=== PATIENT | male | born 1965 | race Caucasian/White ===

== ENCOUNTER 2018-11-29 11:05 | Inpatient (IN) | payer OTHER ==
--- NOTE | 2018-11-29 11:28 | ER Document Report ---
ED Medical Screen (RME) - General Chief Complaint: Abnormal Lab Results Stated Complaint: ABNORMAL LABS Time Seen by Provider: 11/29/18 11:27 Notes: Patient has recently not been feeling well so he went to a local office where he had blood drawn yesterday. He got a call today saying that his thyroid was not functioning and that he had some other abnormal labs. Reviewing the lab core sheet shows the patient also has elevated CK-MB. Patient says he recently added 100 abdominal crunches a day to his workout regimen for the past week. Patient denies any nausea or vomiting. Never had a problem with his thyroid before. Has been told he has hypertension but not taking any medicines for it. TRAVEL OUTSIDE OF THE [place] IN LAST 30 DAYS: No - Related Data Allergies/Adverse Reactions: No Known Allergies Allergy (Unverified 11/29/18 11:07) Past Medical History Renal/ Medical History: Denies: Hx Peritoneal Dialysis Physical Exam - Vital signs Vitals: Temp Pulse Resp BP Pulse Ox 99.4 F 83 20 163/101 H 97 11/29/18 11:14 11/29/18 11:14 11/29/18 11:14 11/29/18 11:14 11/29/18 11:14 Course - Vital Signs Vital signs: Temp Pulse Resp BP Pulse Ox 99.4 F 83 20 163/101 H 97 11/29/18 11:14 11/29/18 11:14 11/29/18 11:14 11/29/18 11:14 11/29/18 11:14
[2018-11-29] MEDS ORDERED: NORMAL SALINE 1000 ML 1,000 ML IV ONE (11:29)
[2018-11-29 12:24] LABS: ABSOLUTE BASOPHILS # (AUTO) 0.1 10^3/uL (0.0-0.2); ABSOLUTE EOSINOPHILS # (AUTO) 0.2 10^3/uL (0.0-0.6); ABSOLUTE MONOCYTES (AUTO) 0.3 10^3/uL (0.1-1.4); ABSOLUTE NEUT (AUTO) 3.7 10^3/uL (1.7-8.2); BASOPHILS % (AUTO) 2.2 % (0-2); HEMATOCRIT 36.5 % (37.9-51.0); HEMOGLOBIN 12.5 g/dL (13.5-17.0); LYMPHOCYTES % (AUTO) 31.6 % (13-45); MEAN CORPUSCULAR HEMOGLOBIN 32.1 pg (27.0-33.4); MEAN CORPUSCULAR HGB CONC 34.2 g/dL (32.0-36.0); MEAN CORPUSCULAR VOLUME 94 fl (80-97); MONOCYTES % (AUTO) 5.4 % (3-13); PLATELET COUNT 353 10^3/uL (150-450); RED BLOOD COUNT 3.88 10^6/uL (4.35-5.55); RED CELL DISTRIBUTION WIDTH 14.7 % (11.5-14.0); SEGMENTED NEUTROPHILS % (AUTO) 57.8 % (42-78); TOTAL CELLS COUNTED % (AUTO) 100 %; WHITE BLOOD COUNT 6.4 10^3/uL (4.0-10.5)
[2018-11-29 12:31] LABS: APPEARANCE,URINE CLEAR; BILIRUBIN,URINE NEGATIVE (NEGATIVE); COLOR,URINE YELLOW; GLUCOSE, URINE NEGATIVE (NEGATIVE); KETONES,URINE NEGATIVE (NEGATIVE); LEUKOCYTE ESTERASE,URINE NEGATIVE (NEGATIVE); NITRITE,URINE NEGATIVE (NEGATIVE); PROTEIN,URINE NEGATIVE (NEGATIVE); URINE SPECIFIC GRAVITY 1.021; UROBILINOGEN,URINE NEGATIVE mg/dL (<2.0)
[2018-11-29 12:48] LABS: ALANINE AMINOTRANSFERASE 43 U/L (21-72); ALBUMIN 5.4 g/dL (3.5-5.0); ALKALINE PHOSPHATASE 61 U/L (38-126); ANION GAP 13 (5-19); ASPARTATE AMINO TRANSFERASE 90 U/L (17-59); BILIRUBIN,DIRECT 0.2 mg/dL (0.0-0.4); BILIRUBIN,TOTAL 0.5 mg/dL (0.2-1.3); BLOOD UREA NITROGEN 18 mg/dL (7-20); CALCIUM 9.9 mg/dL (8.4-10.2); CARBON DIOXIDE 28 mmol/L (22-30); CHLORIDE 100 mmol/L (98-107); GLUCOSE 87 mg/dL (75-110); LIPASE 191.6 U/L (23-300); POTASSIUM 4.1 mmol/L (3.6-5.0); SODIUM 141.2 mmol/L (137-145); TOTAL PROTEIN 8.6 g/dL (6.3-8.2)
[2018-11-29 12:59] LABS: CREATINE KINASE 3050 U/L (55-170)
[2018-11-29 13:00] LABS: TROPONIN I < 0.012 ng/mL
--- NOTE | 2018-11-29 17:18 | ER Document Report ---
ED General - General Chief Complaint: Abnormal Lab Results Stated Complaint: ABNORMAL LABS Time Seen by Provider: 11/29/18 11:27 Notes: 52-year-old male with no past medical history presents to the emergency department for abnormal labs after being sent over from doctor's office today. He states he was in his usual state of health yesterday and suddenly developed blurred vision/dizziness/nausea and cold sweats while eating lunch. He went to the nurse's station where he was told his blood pressure was markedly elevated so they did labs. Chest x-ray was done urinalysis was done normal. Patient was at work today when he received a call from his that the doctor's office called he had abnormal labs they told him to go to the emergency department. Of note, he said he had a brief episode of chest pain about 2.5 weeks ago. Patient denies fever, chills, headache, current vision changes, lightheaded or dizziness at this time, shortness of breath or chest pain, abdominal pain, urinary symptoms. TRAVEL OUTSIDE OF THE [place] IN LAST 30 DAYS: No - Related Data Allergies/Adverse Reactions: No Known Allergies Allergy (Unverified 11/29/18 11:07) Past Medical History - Social History Smoking Status: Unknown if Ever Smoked Family History: None Patient has suicidal ideation: No Patient has homicidal ideation: No Renal/ Medical History: Denies: Hx Peritoneal Dialysis Review of Systems - Review of Systems Constitutional: See HPI EENT: See HPI Cardiovascular: See HPI Respiratory: See HPI Gastrointestinal: See HPI Genitourinary: See HPI Male Genitourinary: No symptoms reported Musculoskeletal: No symptoms reported Skin: No symptoms reported Hematologic/Lymphatic: No symptoms reported Neurological/Psychological: No symptoms reported Physical Exam - Vital signs Vitals: Temp Pulse Resp BP Pulse Ox 99.4 F 83 20 163/101 H 97 11/29/18 11:14 11/29/18 11:14 11/29/18 11:14 11/29/18 11:14 11/29/18 11:14 - Notes Notes: PHYSICAL EXAMINATION: Reviewed vital signs and charting by RN GENERAL: Alert, interacts well. No acute distress. HEAD: Normocephalic, atraumatic. EYES: Pupils equal, round. Extraocular movements intact. ENT: Oral mucosa moist, tongue midline. NECK: Full range of motion. Trachea midline. LUNGS: Clear to auscultation bilaterally, no wheezes, rales, or rhonchi. No respiratory distress. HEART: Regular rate and rhythm. No murmur ABDOMEN: soft, non-tender. Non-distended. Bowel sounds present in all 4 quadrants. no McBurney's point tenderness, no Mcdaniels sign. EXTREMITIES: Moves all 4 extremities spontaneously. No edema, No cyanosis. NEUROLOGICAL: Alert and oriented x3. Normal speech. PSYCH: Normal affect, normal mood. SKIN: Warm, dry, normal turgor. No rashes or lesions noted. Course - Re-evaluation Re-evalutation: 11/29/18 17:18 Well-appearing 52-year-old male presents with abnormal labs. Outside labs from lab core and a TSH of 127.9, free T4 undetectable. Patient also with a CK of 3000. I called Dr. Chaparro, hospitalist to discuss patient for admission and requested a consultation. He is going to come and see the patient. Patient is otherwise alert and oriented in no distress. Physical exam was unremarkable. 11/29/18 17:34 11/29/18 18:55 Labs obtained here showed a CK of just over 3000, TSH and free T4 were added. Creatinine 1.32 but otherwise all labs were unremarkable. I spoke with Dr. Burroughs came and saw the patient and accepted the patient for observation. 11/29/18 18:56 - Vital Signs Vital signs: Temp Pulse Resp BP Pulse Ox 98.2 F 58 L 18 148/89 H 99 11/29/18 18:43 11/29/18 18:43 11/29/18 18:43 11/29/18 18:43 11/29/18 18:43 - Laboratory Result Diagrams: 11/29/18 11:52 11/29/18 11:52 Laboratory results interpreted by me: 11/29/18 11/29/18 11/29/18 11:52 11:52 11:52 RBC 3.88 L Hgb 12.5 L Hct 36.5 L RDW 14.7 H Basophils % 2.2 H Creatinine 1.31 H Est GFR (Non-Af Amer) 57 L AST 90 H Creatine Kinase 3050 H CK-MB (CK-2) 13.30 H Total Protein 8.6 H Albumin 5.4 H Urine Blood 11/29/18 11:52 RBC Hgb Hct RDW Basophils % Creatinine Est GFR (Non-Af Amer) AST Creatine Kinase CK-MB (CK-2) Total Protein Albumin Urine Blood SMALL H Discharge - Discharge Clinical Impression: Hypothyroidism Qualifiers: Hypothyroidism type: unspecified Qualified Code(s): E03.9 - Hypothyroidism, unspecified Hypertension Qualifiers: Hypertension type: essential hypertension Qualified Code(s): I10 - Essential (primary) hypertension Rhabdomyolysis Qualifiers: Rhabdomyolysis type: non-traumatic Qualified Code(s): M62.82 - Rhabdomyolysis Condition: Good Disposition: ADMITTED OBSERVATION Unit Admitted: Medical Floor
[2018-11-29] MEDS ORDERED: NORMAL SALINE 1000 ML 1,000 ML IV PRN (18:16)
--- NOTE | 2018-11-29 18:29 | PDOC H&P ---
History of Present Illness Patient complains of: nausea History of Present Illness: KHUSHBOO SCHUSTER is a 52 year old male with a PMH of hypertension and chronic smoking, not currently taking any medication who presented with nausea. Patient says he was apparently fine when he later developed nausea after eating pizza and felt like he was having mild blurring of vision. He says he also became very sweaty. He says he had very transient chest pain the other night but no recurrence so far. He denies SOB. Denies weakness, leg edema or confusion. He had some outpatient labs done earlier today which showed severely elevated TSH of 127 and severely T3 and undetectable T4. In the ER, he was also noted to have slightly elevated creatinine. He says his last known creatinine was normal but does not have a PCP and does not ff up with any physician. He was also noted to have elevated CK. Social History Smoking Status: Unknown if Ever Smoked Family History Parental Family History Reviewed: Yes - no premature CAD Children Family History Reviewed: No Sibling(s) Family History Reviewed.: No Medication/Allergy Home Medications: Multivitamin [Tab-A-Olga (Multiple Vitamin) Tablet] 1 tab PO DAILY 11/29/18 Aspirin [Ecotrin 81 mg EC Tablet] 81 mg PO DAILY #30 tabec 11/30/18 Levothyroxine Sodium [Synthroid] 125 mcg PO QAM #30 tablet 11/30/18 Losartan Potassium [Cozaar 50 mg Tablet] 50 mg PO DAILY #30 tablet 11/30/18 Allergies/Adverse Reactions: No Known Allergies Allergy (Unverified 11/29/18 11:07) Review of Systems All systems: reviewed and no additional remarkable complaints except as stated - as mentioned in HPI Physical Exam Vital Signs: Temp Pulse Resp BP Pulse Ox 99.4 F 83 20 163/101 H 97 11/29/18 11:14 11/29/18 11:14 11/29/18 11:14 11/29/18 11:14 11/29/18 11:14 Intake & Output 11/28/18 11/29/18 11/30/18 06:59 06:59 06:59 Weight 213 lb 6.519 oz Results Laboratory Results: 11/29/18 11:52 11/29/18 11:52 11/29/18 11/29/18 11/29/18 11:52 11:52 11:52 WBC 6.4 RBC 3.88 L Hgb 12.5 L Hct 36.5 L MCV 94 MCH 32.1 MCHC 34.2 RDW 14.7 H Plt Count 353 Seg Neutrophils % 57.8 Lymphocytes % 31.6 Monocytes % 5.4 Eosinophils % 3.0 Basophils % 2.2 H Absolute Neutrophils 3.7 Absolute Lymphocytes 2.0 Absolute Monocytes 0.3 Absolute Eosinophils 0.2 Absolute Basophils 0.1 Sodium 141.2 Potassium 4.1 Chloride 100 Carbon Dioxide 28 Anion Gap 13 BUN 18 Creatinine 1.31 H Est GFR ( Amer) > 60 Est GFR (Non-Af Amer) 57 L Glucose 87 Calcium 9.9 Total Bilirubin 0.5 AST 90 H ALT 43 Alkaline Phosphatase 61 Total Protein 8.6 H Albumin 5.4 H Lipase 191.6 Urine Color YELLOW Urine Appearance CLEAR Urine pH 6.0 Ur Specific [place] 1.021 Urine Protein NEGATIVE Urine Glucose (UA) NEGATIVE Urine Ketones NEGATIVE Urine Blood SMALL H Urine Nitrite NEGATIVE Ur Leukocyte Esterase NEGATIVE Urine WBC (Auto) 1 Urine RBC (Auto) 1 11/29/18 11/29/18 11:52 11:52 Creatine Kinase 3050 H CK-MB (CK-2) 13.30 H Troponin I < 0.012 Assessment & Plan - Diagnosis (1) Acute kidney injury Is this a current diagnosis for this admission?: Yes Plan: Creatinine mildly elevated at 1.3. No baseline Crea but he says his last known Cr was normal. He does have elevated CK. (2) Severe hypothyroidism Is this a current diagnosis for this admission?: Yes Plan: TSH is elevated at 126. T4 and T3 are severely low. He does not have any confusion or altered mentation. No concern for myxedema coma at this. He denies prior thyroid issues. Will start him on high dose oral synthroid. Will send for basic hypothyroid work-up. (3) Rhabdomyolysis Qualifiers: Rhabdomyolysis type: non-traumatic Qualified Code(s): M62.82 - Rhabdomyolysis Is this a current diagnosis for this admission?: Yes Plan: Start IV fluids. Repeat BMP and CK tomorrow. Possibly related to severe hypothyroidism. (4) Hypertension Qualifiers: Hypertension type: essential hypertension Qualified Code(s): I10 - Essential (primary) hypertension Is this a current diagnosis for this admission?: Yes Plan: Will start patient on losartan. Hydralazine prn. - Time Time Spent: 30 to 50 Minutes
[2018-11-29] MEDS ORDERED: HYDRALAZINE HCL INJ/PF 20 MG/1 ML SDV IV PRN (18:35)
[2018-11-29] MEDS: LEVOTHYROXINE SODIUM 0.112 MG TABLET PO SCH (19:25)
[2018-11-29] MEDS: LOSARTAN POTASSIUM 50 MG TABLET PO SCH (19:25)
[2018-11-29 19:48] LABS: FREE T4 (FREE THYROXINE) < 0.07 ng/dL (0.78-2.19)
--- NOTE | 2018-11-29 21:56 | EKG REPORT ---
SEVERITY:- ABNORMAL ECG - SINUS RHYTHM NONSPECIFIC T ABNORMALITIES, LATERAL LEADS : Confirmed by: Donna Scott 29-Nov-2018 21:55:28
[2018-11-30] MEDS: LEVOTHYROXINE SODIUM 0.112 MG TABLET PO SCH (05:26)
[2018-11-30 07:18] LABS: ANION GAP 7 (5-19); BLOOD UREA NITROGEN 18 mg/dL (7-20); CALCIUM 9.7 mg/dL (8.4-10.2); CARBON DIOXIDE 31 mmol/L (22-30); CHLORIDE 105 mmol/L (98-107); GLUCOSE 95 mg/dL (75-110)
[2018-11-30 07:26] LABS: CREATINE KINASE 2459 U/L (55-170)
[2018-11-30] MEDS ORDERED: FONDAPARINUX SODIUM INJ 2.5 MG/0.5 ML DISP.SYRIN SUBCUT SCH (08:00)
--- NOTE | 2018-11-30 09:03 | RADIOLOGY REPORT (SQ) ---
EXAM DESCRIPTION: U/S THYROID/SFT TISS HD NECK COMPLETED DATE/TIME: 11/29/2018 10:59 pm REASON FOR STUDY: severe hypothyroidism COMPARISON: None. TECHNIQUE: Dynamic and static andujar-scale images acquired of the thyroid gland. Selected additional c olor/power Doppler images recorded. All images stored to PACS. LIMITATIONS: None. FINDINGS: RIGHT LOBE: 1.9 cm heterogeneous No cystic or solid masses. LEFT LOBE: 2.8 cm heterogeneous No cystic or solid masses. ISTHMUS: 2.7 cm heterogeneous No cystic or solid masses. OTHER: No other significant finding. IMPRESSION: Heterogeneous gland. No dominant masses. TECHNICAL DOCUMENTATION: JOB ID: [id number] [id number]- All Rights Reserved Reading location - IP/workstation name: [email or web address]
[2018-11-30] MEDS: LOSARTAN POTASSIUM 50 MG TABLET PO SCH (10:19)
[2018-11-30 12:29] VITALS: BP 133/89
--- NOTE | 2018-11-30 14:47 | PDOC DISCHARGE SUMMARY ---
General - Admit/Disc Date/PCP Admission Date/Primary Care Provider: 11/29/18 18:25 Discharge Date: 11/30/18 - Discharge Diagnosis (1) Acute kidney injury Is this a current diagnosis for this admission?: Yes (2) Severe hypothyroidism Is this a current diagnosis for this admission?: Yes (3) Rhabdomyolysis Is this a current diagnosis for this admission?: Yes (4) Hypertension Is this a current diagnosis for this admission?: Yes - Additional Information Resuscitation Status: Full Code Prescriptions: Aspirin [Ecotrin 81 mg EC Tablet] 81 mg PO DAILY #30 tabec Levothyroxine Sodium [Synthroid] 125 mcg PO QAM #30 tablet Losartan Potassium [Cozaar 50 mg Tablet] 50 mg PO DAILY #30 tablet Home Medications: Multivitamin [Tab-A-Olga (Multiple Vitamin) Tablet] 1 tab PO DAILY 11/29/18 Aspirin [Ecotrin 81 mg EC Tablet] 81 mg PO DAILY #30 tabec 11/30/18 Levothyroxine Sodium [Synthroid] 125 mcg PO QAM #30 tablet 11/30/18 Losartan Potassium [Cozaar 50 mg Tablet] 50 mg PO DAILY #30 tablet 11/30/18 History of Present Illness History of Present Illness: KHUSHBOO SCHUSTER is a 52 year old male with a PMH of hypertension and chronic smoking, not currently taking any medication who presented with nausea. He does complain of recent hair loss on the legs and weight gain as well. Patient says he was apparently fine when he later developed nausea after eating pizza and felt like he was having mild blurring of vision. He says he also became very sweaty. He says he had very transient chest pain the other night but no recurrence so far. He denies SOB. Denies weakness, leg edema or confusion. He had some outpatient labs done earlier today which showed severely elevated TSH of 127 and severely T3 and undetectable T4. In the ER, he was also noted to have slightly elevated creatinine. He says his last known creatinine was normal but does not have a PCP and does not ff up with any physician. He was also noted to have elevated CK. Hospital Course Hospital Course: Patient was admitted for newly diagnosed severe hypothyroidism with a severely elevated TSH of 127 and severely low T3 and undetectable T4. In the ER, he was also noted to have slightly elevated creatinine and elevated CK. He was started on IV fluids and synthroid. His creatinine and CK did improve with fluids the next day. Elevated CK is likely related to his severe hypothyroidism. Thyroid US was done which came back unremakrbale. Anti TPO was sent and came back significantly elevated. 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 He will be discharged on Synthroid 125 mcg daily. He will be given an appt with endocrinology and also given a new appt with a new PCP. He was also started on Losartan for his hypertension. He will have his thyroid panel repeated by his new PCP next week. Physical Exam Vital Signs: Temp Pulse Resp BP Pulse Ox 98.6 F 77 18 133/89 H 98 11/30/18 12:00 11/30/18 12:00 11/30/18 12:00 11/30/18 12:00 11/30/18 12:00 Intake & Output 11/29/18 11/30/18 12/01/18 06:59 06:59 06:59 Intake Total 236 503 Balance 236 503 Weight 215 lb 13.321 oz General appearance: PRESENT: no acute distress, well-developed, well-nourished Head exam: PRESENT: atraumatic, normocephalic Eye exam: PRESENT: conjunctiva pink, EOMI, PERRLA. ABSENT: scleral icterus Ear exam: PRESENT: normal external ear exam Mouth exam: PRESENT: moist, tongue midline Neck exam: ABSENT: carotid bruit, JVD, lymphadenopathy, thyromegaly Respiratory exam: PRESENT: clear to auscultation leonid. ABSENT: rales, rhonchi, wheezes Cardiovascular exam: PRESENT: RRR. ABSENT: diastolic murmur, rubs, systolic murmur Pulses: PRESENT: normal dorsalis pedis pul GI/Abdominal exam: PRESENT: normal bowel sounds, soft. ABSENT: distended, guarding, mass, organolmegaly, rebound, tenderness Rectal exam: PRESENT: deferred Extremities exam: PRESENT: other - note of hair loss on both legs, trace edema Neurological exam: PRESENT: alert, awake, oriented to person, oriented to place, oriented to time, oriented to situation, CN II-XII grossly intact. ABSENT: motor sensory deficit Results Laboratory Results: 11/29/18 11:52 11/30/18 06:09 11/29/18 11/29/18 11/30/18 11:52 11:52 06:09 Sodium 143.0 Potassium 5.0 Chloride 105 Carbon Dioxide 31 H Anion Gap 7 BUN 18 Creatinine 1.19 Est GFR ( Amer) > 60 Est GFR (Non-Af Amer) > 60 Glucose 95 Calcium 9.7 TSH 120.00 H Free T4 < 0.07 L Free T3 pg/mL 0.78 L 11/30/18 06:09 Sodium Potassium Chloride Carbon Dioxide Anion Gap BUN Creatinine Est GFR ( Amer) Est GFR (Non-Af Amer) Glucose Calcium TSH 117.00 H Free T4 Free T3 pg/mL 11/29/18 11/29/18 11/30/18 11:52 11:52 06:09 Creatine Kinase 3050 H 2459 H CK-MB (CK-2) 13.30 H Troponin I < 0.012 Impressions: Thyroid Ultrasound 11/29/18 00:00 IMPRESSION: Heterogeneous gland. No dominant masses. Qualifiers - * PATIENT BEING DISCHARGED WITH ANY OF THE FOLLOWING DIAGNOSIS: No
== END 2018-11-30 15:43 | disposition home or self-care (01) | DRG 644 ==
LOC: ER 11:05 → EH 18:25 → OBSVTOIN 18:25 → 4S 20:44
PROVIDERS: ADMIT Internal Medicine; ATTEND Internal Medicine
DX: E03.9 Hypothyroidism, unspecified (principal); N17.9 Acute kidney failure, unspecified; M62.82 Rhabdomyolysis; I10 Essential (primary) hypertension; F17.210 Nicotine dependence, cigarettes, uncomplicated; R63.5 Abnormal weight gain; Z79.899 Other long term (current) drug therapy; Z79.82 Long term (current) use of aspirin; Z79.890 Hormone replacement therapy
CPT/HCPCS: 36415; 76536; 80048; 80053; 81001; 82550; 82553; 83690; 84439; 84443; 84481; 84484; 85025; 86376; 93005; 93010; 96360; 99285; J1652; J3490; J7030

== ENCOUNTER 2019-01-01 09:14 | Emergency (ER) | payer BC, OTHER ==
[2019-01-01] MEDS ORDERED: DEXAMETHASONE SOD PHOS INJ 10 MG/1 ML VIAL IM ONE (10:03)
[2019-01-01] MEDS ORDERED: LIDOCAINE 5% (700 MG) TRANSDERMAL ADH..PATCH TP ONE (10:04)
--- NOTE | 2019-01-01 10:10 | ER Document Report ---
ED Neck/Back Problem - General Chief Complaint: Low Back Pain Stated Complaint: LOWER BACK PAIN Time Seen by Provider: 01/01/19 09:46 Primary Care Provider: [facility] [Provider Group] - Follow up as needed ZACHARY BALDWIN DO [Primary Care Provider] - Follow up as needed Mode of Arrival: Ambulatory Information source: Patient Notes: 53-year-old male presents to ED for complaint of low back pain going down his left leg. He denies any injuries. He states he has had pain low back since 2006 but is gotten worse over the last 5 or 6 years. He states over the last 10 days is gotten much worse and over the last 3 days is got worse than ever. He states he was seen by Dr. Baldwin on Sunday and then again on Sunday for his elevated blood pressure and hypothyroid and started on blood pressure medicine and thyroid medications. He states a lot of blood work was done to Dr. Baldwin's office but that he did not really go into how bad his back was hurting because he was more concerned about the thyroid blood pressure at the time. He states he works for the [employer] and does a lot of sitting and standing for long period of time. We will get x-rays treat with Decadron and Lidoderm patch and then treat according to what I find on the x-rays. 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 TRAVEL OUTSIDE OF THE [place] IN LAST 30 DAYS: No - HPI Patient complains to provider of: Pain, Lower back Onset: Other - 2006 Onset: Chronic Timing: Worse Quality of pain: Burning, Sharp, Throbbing Severity: Moderate Pain Level: 4 Recent injury: No Associated symptoms: Like prior neck/back pain, Numbness/tingling, Radiation to leg - Left leg, Lower back pain. denies: Constipation, Fever, Incontinence, Motor loss, Radiation to arm, Radiation to chest, Sensory loss, Sweaty, Unable to urinate Exacerbated by: Movement of trunk, Sitting position Relieved by: Nothing Similar symptoms previously: Yes Recently seen / treated by doctor: No - Related Data Allergies/Adverse Reactions: No Known Allergies Allergy (Verified 01/01/19 09:14) Past Medical History - General Information source: Patient - Social History Smoking Status: Current Every Day Smoker Cigarette use (# per day): Yes - 6-7 cig a day Chew tobacco use (# tins/day): No Smoking Education Provided: Yes - 4 minutes Frequency of alcohol use: Occasional Drug Abuse: None Lives with: Family Family History: None Patient has suicidal ideation: No Patient has homicidal ideation: No - Past Medical History Cardiac Medical History: Reports: Hx Hypertension Pulmonary Medical History: Reports: None EENT Medical History: Reports: None Neurological Medical History: Reports: None Endocrine Medical History: Reports: Hx Hypothyroidism, Other - Serjio's thyroiditis Renal/ Medical History: Reports: None Malignancy Medical History: Reports None GI Medical History: Reports: None Musculoskeletal Medical History: Reports Hx Arthritis, 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, Reports Hx Musculoskeletal Trauma Skin Medical History: Reports None Psychiatric Medical History: Reports: None Traumatic Medical History: Reports: Hx Fractures - Hand Infectious Medical History: Reports: None Past Surgical History: Reports: Hx Inguinal Hernia Review of Systems - Review of Systems Constitutional: No symptoms reported EENT: No symptoms reported Cardiovascular: No symptoms reported Respiratory: No symptoms reported Gastrointestinal: No symptoms reported Genitourinary: No symptoms reported Male Genitourinary: No symptoms reported Musculoskeletal: Back pain Skin: No symptoms reported Hematologic/Lymphatic: No symptoms reported Neurological/Psychological: No symptoms reported Physical Exam - Vital signs Vitals: Temp Pulse Resp BP Pulse Ox 99.4 F 87 18 222/93 H 100 01/01/19 09:17 01/01/19 09:17 01/01/19 09:17 01/01/19 09:17 01/01/19 09:17 Interpretation: Normal - General General appearance: Appears well, Alert - HEENT Head: Normocephalic, Atraumatic Eyes: Normal Pupils: PERRL - Respiratory Respiratory status: No respiratory distress Chest status: Nontender Breath sounds: Normal Chest palpation: Normal - Cardiovascular Rhythm: Regular Heart sounds: Normal auscultation Murmur: No - Abdominal Inspection: Normal Distension: No distension Bowel sounds: Normal Tenderness: Nontender Organomegaly: No organomegaly - Back Back: Normal, Tender, Vertebra tenderness. No: Deformity/step-off, CVA tenderness, Scars, Scoliosis, Wounds Notes: No signs or symptoms of cauda equina, no saddle anesthesia, no loss of control of bowel bladder, no loss of control or sensation to the lower extremities. He does have some numbness and tingling down the left leg across the left buttocks. - Extremities General upper extremity: Normal inspection, Nontender, Normal color, Normal ROM, Normal temperature General lower extremity: Normal inspection, Nontender, Normal color, Normal ROM, Normal temperature, Normal weight bearing. No: Josias's sign - Neurological Neuro grossly intact: Yes Cognition: Normal Orientation: AAOx4 Nedra Coma Scale Eye Opening: Spontaneous Nedra Coma Scale Verbal: Oriented Nedra Coma Scale Motor: Obeys Commands Nedra Coma Scale Total: 15 Speech: Normal Motor strength normal: LUE, RUE, LLE, RLE Sensory: Normal - Psychological Associated symptoms: Normal affect, Normal mood - Skin Skin Temperature: Warm Skin Moisture: Dry Skin Color: Normal Course - Re-evaluation Re-evalutation: 01/01/19 11:11 After performing a Medical Screening Examination, I estimate there is LOW risk for EXPANDING OR RUPTURED ABDOMINAL AORTIC ANEURYSM, CAUDA EQUINA SYNDROME, EPIDURAL MASS LESION, or HERNIATED DISK CAUSING SEVERE SPINAL STENOSIS, thus I consider the discharge disposition reasonable. I have reevaluated this patient multiple times and no significant life threatening changes are noted. The patient and I have discussed the diagnosis and risks, and we agree with discharging home and close follow-up. We also discussed returning to the Emergency Department immediately if new or worsening symptoms occur with the understanding that symptoms and presentations can change. We have discussed the symptoms which are most concerning (e.g., saddle anesthesia, urinary or bowel incontinence or retention, changing or worsening pain) that necessitate immediate return. 01/01/19 11:11 Patient was instructed to follow-up with Dr. Baldwin concerning his elevated blood pressure and his back pain. A written report of the x-ray was given to patient to follow-up with Dr. Baldwin he was also given the name and number for [facility] for surgery for follow-up of his back pain. Patient was treated with Decadron IM and Lidoderm patch in the emergency room and sent home with prescription for muscle relaxers. Patient verbalized understanding and agreement with treatment plan. - Vital Signs Vital signs: Temp Pulse Resp BP Pulse Ox 99.4 F 79 16 178/96 H 98 01/01/19 09:17 01/01/19 11:14 01/01/19 11:14 01/01/19 11:14 01/01/19 11:14 - Diagnostic Test Radiology reviewed: Image reviewed, Reports reviewed Discharge - Discharge Clinical Impression: Low back pain Qualifiers: Chronicity: chronic Back pain laterality: bilateral Sciatica presence: with sciatica Sciatica laterality: sciatica of left side Qualified Code(s): M54.42 - Lumbago with sciatica, left side Condition: Stable Disposition: HOME, SELF-CARE Additional Instructions: LOW BACK PAIN: Three out of every four people will have an episode of disabling back pain during their lifetime. Most commonly the pain is due to straining of the muscles and ligaments in the low back. Usual treatment includes: (1) Rest on a firm surface. Avoid lying on your stomach. (2) Ice pack the painful area. After a few days, gentle heat may be used intermittently to relax the area, or ice packs can be continued. (3) Medication may be needed -- muscle relaxers and antiinflammatory medicines are commonly used. (4) As the back improves, exercises are prescribed to strengthen the back and abdominal muscles. Your doctor will advise you on the proper care for your back at each stage in your recovery. You may be better in a few days -- or healing may take several weeks. If new symptoms of a "herniated disc" (radiation of pain, numbness, or tingling down the back of the leg or weakness in the leg) occur, you should be re-examined. Further testing may be necessary. Sacralization is a common irregularity of the spine, where the fifth vertebra is fused to the sacrum bone at the bottom of the spine. The fifth lumbar vertebra, known as L5, may fuse fully or partially on either side of the sacrum, or on both sides. Sacralization is a congenital anomaly that occurs in the embryo. Sacralization often has no symptoms. Its sometimes is associated with lower back pain or problems with posture and movement. It's also called lumbosacral transitional vertebrae or LSTV. MUSCLE RELAXERS: Muscle relaxing medications are usually prescribed for acute muscle spasm or injury to the neck and back. They are often combined with antiinflammatory pain medication for increased relief. You may stop the muscle relaxer when the pain and stiffness have improved. Start the medication again if spasms recur. Muscle relaxers may cause drowsiness, especially with the first dose. Do not operate machinery or drive while under the effects of the medication. Most muscle relaxers last up to 24 hours. Do not combine the medication with alcohol. ICE PACKS: Apply ice packs frequently against the painful area. Many different schedules are recommended, such as "20 minutes on, 20 minutes off" or "one hour ice, two hours rest." If you need to work, you may need to go longer between ice treatments. You should plan to have the area ice packed AT LEAST one fourth of the time. The ice should be applied over the wrap, tape, or splint, or over a layer of cloth -- not directly against the skin. Some ice bags have a built-in cloth and can be put directly on the skin. WARM PACKS: After approximately two days, apply gentle heat (such as a heating pad or hot water bottle) for about 20 to 30 minutes about every two hours -- at least four times daily. Warmth and elevation will help you make a more rapid recovery, and will ease the pain considerably. Do not use HOT heat, and never apply heat for longer than 30 minutes. The continuous heat can invisibly damage skin and muscles -- even when no burn is seen on the surface. Damaged muscles can make you MORE sore. STEROID MEDICATION: You have been given an injection of medicine of the cortisone/steroid class. This medication is used to control inflammation or allergy. It is often continued as a pill for a short period of time, until the acute process subsides. There are usually no side effects from short-term use of cortisone-like medications. Some persons feel an increased sense of well-being and are not sleepy at bedtime. Long-term use of cortisone medications is best avoided, unless required for a severe condition. If your condition does not remit, or relapses after the course of corticosteroid medication, you should consult your physician. Stretching Exercises for the Back The physician has recommended that you begin stretching exercises for your back. These are often used even while the back is painful. However, you should notify the physician if the activities seem to increase your pain. PELVIC TILT: Lie flat on your back with knees bent. Tighten your stomach and buttock muscles so it flattens your lower back against the floor. Hold 10 seconds. Repeat 10 times, twice daily. KNEE RAISE: Lying on the back with knees bent, raise one knee to your chest, then the other. Hold both knees against the chest 10 seconds, then lower one knee at a time. Repeat 10 times, twice daily. PARTIAL TRUNK RAISE: Lie face down, arms at your sides. Keeping your waist on the floor, use your arms raise your chest up. Support yourself on your elbows for 30 seconds. Repeat twice daily, increasing the time to two minutes as you recover. FOLLOW-UP CARE: If you have been referred to a physician for follow-up care, call the physicians office for an appointment as you were instructed or within the next two days. If you experience worsening or a significant change in your symptoms, notify the physician immediately or return to the Emergency Department at any time for re-evaluation. Prescriptions: Cyclobenzaprine HCl [Flexeril 10 mg Tablet] 10 mg PO TIDP PRN #15 tab PRN Reason: Lidocaine [Lidoderm 5% (700 mg) Transdermal Patch] 1 patch TP DAILY #30 adh..patch Forms: Elevated Blood Pressure, Smoking Cessation Education Referrals: ZACHARY BALDWIN DO [Primary Care Provider] - Follow up as needed [facility] [Provider Group] - Follow up as needed
--- NOTE | 2019-01-01 10:39 | RADIOLOGY REPORT (SQ) ---
EXAM DESCRIPTION: L SPINE WHOLE COMPLETED DATE/TIME: 01/01/2019 10:20 am REASON FOR STUDY: low back pain radiates to right COMPARISON: None. NUMBER OF VIEWS: Five views including obliques. TECHNIQUE: AP, lateral, oblique, and sacral radiographic images acquired of the lumbar spine. LIMITATIONS: None. FINDINGS: MINERALIZATION: Normal. SEGMENTATION: 5 [id number] lumbar vertebral bodies. There is partial sacralization of the L5 ve rtebral body, right greater than left. ALIGNMENT: Normal. VERTEBRAE: Maintained height. No fracture or worrisome bone lesion. DISCS: Mild disc height loss at L3-4 and L4-5. Remaining disc spaces are unremarkable. POSTERIOR ELEMENTS: Pedicles and facets are intact. No pars defect or posterior arch defects. HARDWARE: None in the spine. PARASPINAL SOFT TISSUES: Normal. PELVIS: Intact as visualized. No fractures or worrisome bone lesions. SI joints intact. OTHER: No other significant finding. IMPRESSION: No evidence of acute bony abnormality. Minimal disc height loss at L3-4 and L4-5. Partial sacralization of the L5 vertebral body. TECHNICAL DOCUMENTATION: JOB ID: [id number] [employer]- All Rights Reserved Reading location - IP/workstation name: [email or web address]
[2019-01-01 11:15] VITALS: BP 178/96
== END 2019-01-01 11:14 | disposition home or self-care (01) ==
LOC: ER 09:14
DX: M54.42 Lumbago with sciatica, left side (principal); G89.29 Other chronic pain; I10 Essential (primary) hypertension; F17.210 Nicotine dependence, cigarettes, uncomplicated; Z71.6 Tobacco abuse counseling
CPT/HCPCS: 99406; 99283; 96372; 72110; J1100

== ENCOUNTER 2019-01-31 08:36 | Day surgery (SDC) | payer BC, OTHER ==
[~2019-01-31 08:36] MED LIST: PROPOFOL INJ 200 MG/20 ML VIAL IV ONE
--- NOTE | 2019-01-31 11:37 | Operative Report ---
Operative Report DATE OF SURGERY: 01/31/19 Operative Report: The risks, benefits and alternatives of the procedure including the risk of bleeding, perforation requiring surgery have been explained to the patient in detail and informed consent has been obtained. Patient is brought back to the endoscopy unit and placed in a left, lateral decubital position. Timeout was called. Propofol medication is administered. Rectal examination is done which did not reveal any masses, tears or fissures. An Olympus videoscope was introduced into the patient's rectum. The scope was then carefully advanced all the way to the cecum. The cecum was identified by the usual anatomical landmarks of the ileocecal valve as well as the appendiceal office. Photodocumentation is obtained. Prep was good. The scope was then sequentially pulled back via the rest segments of the colon including the ascending colon, hepatic flexure, transverse colon, splenic flexure, descending colon and finally into the rectosigmoid portions of the colon. Retroflexion maneuvers performed. PREOPERATIVE DIAGNOSIS: Colorectal cancer screening POSTOPERATIVE DIAGNOSIS: Polyp in the descending colon status post removal with biopsy forceps. Internal hemorrhoids OPERATION: Colonoscopy with biopsy SURGEON: JUAN F EDGAR ANESTHESIA: LMAC TISSUE REMOVED OR ALTERED: As noted above. COMPLICATIONS: None. ESTIMATED BLOOD LOSS: None. INTRAOPERATIVE FINDINGS: As noted above. PROCEDURE: Patient tolerated the procedure well. No immediate postprocedure complications are noted. Patient discharged in good condition. Discharge date 01/31/2019. Discharge diet: Regular. Discharge activity: Regular. 2 to 3-week follow-up to discuss findings. Patient is instructed to call the office or proceed to the emergency room should there be any further proximal questions. Wait on the pathology. Likely 5-year surveillance colonoscopy.
[2019-01-31 11:50] VITALS: BP 118/63
== END 2019-01-31 11:45 | disposition home or self-care (01) ==
LOC: END 08:36
PROVIDERS: ATTEND Internal Medicine Gastroenterology
DX: Z12.11 Encounter for screening for malignant neoplasm of colon (principal); D12.4 Benign neoplasm of descending colon; K64.8 Other hemorrhoids; I10 Essential (primary) hypertension; E03.9 Hypothyroidism, unspecified; F17.210 Nicotine dependence, cigarettes, uncomplicated; D64.9 Anemia, unspecified; Z79.82 Long term (current) use of aspirin; Z79.899 Other long term (current) drug therapy
CPT/HCPCS: 45380; 88305 ×2; J2704; 811